=== PATIENT | female | born 2000 | race Caucasian/White ===

== ENCOUNTER 2022-11-19 10:33 | Emergency (ER) | payer BC ==
[2022-11-19] MEDS ORDERED: Ketorolac Tromethamine 30 MG/ML VIAL ONE (12:14)
[2022-11-19 12:16] LABS: Bilirubin Neg (Negative); Blood, Urine 50 (Negative); Glucose, Urine (Dipstick) Normal (Negative); Ketone, Urine Negative (Negative); Leukocyte 25 (Negative); Nitrite Negative (Negative); Protein, Urine (Dipstick) 15 mg/dl (Neg-Trace); Specific Gravity, Urine 1.025 (1.005-1.030); Urobilinogen Normal mg/dL (Less than 2)
[2022-11-19 12:20] LABS: Clarity Clear (Clear)
[2022-11-19 12:36] LABS: Bacteria/HPF None Seen HPF (None Seen); Mucous/LPF 1+ LPF (<2+); RBC/HPF 0-3 HPF (0-3); Squamous Epithelial 0-3 HPF (0-3); WBC/HPF 0-3 HPF (0-3)
[2022-11-19 12:52] LABS: Pregnancy Test - Urine (BHCG) Negative (Negative); Pregu Control Background? CLEAR/WHITE (CLR/WHITE); Pregu Control Bar Appear? YES (CONTROL BAR); Specific Gravity 1.025 (1.002-1.036)
[2022-11-19 22:57] LABS: Chlam.trachomatis by PCR,Urine Not Detected (NotDetected)
== END 2022-11-19 12:40 | disposition home or self-care (01) ==
LOC: CSHERS 10:33
DX: N72 Inflammatory disease of cervix uteri (principal)
CPT/HCPCS: 81003; 81015; 81025; 87491; 87591; 96372; 99284; J1885

== ENCOUNTER 2024-10-24 21:04 | Inpatient (IN) | payer BC, OTHER ==
[2024-10-24] MEDS ORDERED: Diphenoxylate HCl/Atropine Tablet PO PRN ×2 (21:31)
[2024-10-24] MEDS ORDERED: Zolpidem Tartrate 5 MG TAB PO PRN (21:31)
[2024-10-24] MEDS ORDERED: Methylergonovine 0.2 MG/ML VIAL IM PRN (21:31)
[2024-10-24] MEDS ORDERED: Promethazine HCl 25 MG/ML VIAL IM PRN (21:31)
[2024-10-24] MEDS ORDERED: hydrALAZINE 20 MG/ML VIAL SLOW IVP PRN (21:31)
[2024-10-24] MEDS ORDERED: Tranexamic Acid 1,000 MG/10 ML VIAL IVP PRN (21:31)
[2024-10-24] MEDS ORDERED: Acetaminophen 500 MG TAB PO PRN (21:31)
[2024-10-24] MEDS ORDERED: HYDROcodone/Acetaminophen 5/325 mg Tablet PO PRN ×2 (21:31)
[2024-10-24] MEDS ORDERED: fentaNYL 50 mcg/mL 1 mL Vial SLOW IVP PRN (21:31)
[2024-10-24] MEDS ORDERED: Misoprostol 200 MCG TAB PR PRN (21:31)
[2024-10-24] MEDS ORDERED: Lidocaine 1% (PF) 30 ML VIAL SC PRN (21:31)
[2024-10-24] MEDS ORDERED: Carboprost 250 MCG/ML AMP IM PRN (21:31)
[2024-10-24 21:33] VITALS: BMI 21.5
[2024-10-24] MEDS ORDERED: Oxytocin 30 units/NS 500 ML 500 ML IV SCH (22:00)
[2024-10-24] MEDS ORDERED: Misoprostol 100 MCG TAB VAG SCH (22:00)
[2024-10-24] MEDS ORDERED: Lactated Ringer's 1,000 ML IV SCH (22:00)
[2024-10-24 22:26] LABS: Hematocrit 33.9 % (34.9-44.5); Hemoglobin 11.2 g/dL (12.0-15.5); Mean Corpuscular Hemoglobin 26.9 pg (27.0-33.0); Mean Corpuscular Volume 81.3 fL (81.6-98.3); Mean Platelet Volume 12.4 fL (7.4-10.4); Platelet Count 278 10x3/uL (150-450); RBC Distribution Width 14.2 % (11.5-14.5); Red Blood Cell (RBC) Count 4.17 10x6/uL (3.90-5.03)
[2024-10-24 23:00] LABS: HBsAg Index 0.19 S/CO (0-0.99); Hep B Surf Ag - L&D Non-Reactive S/CO (NonReactive); Syphilis Antibody Nonreactive (Nonreactive); Syphilis Antibody Index 0.13 S/CO (<1.00 Non-Reactive)
[2024-10-25] MEDS: Oxytocin 30 units/NS 500 ML 500 ML IV SCH (00:29)
[2024-10-25] MEDS: Ondansetron PF 4 MG/2 ML Vial IVP PRN (01:00)
[2024-10-25] MEDS: fentaNYL/Ropivacaine Epidural 100 ML ONE (01:47)
[2024-10-25] MEDS ORDERED: Ondansetron PF 4 MG/2 ML Vial IVP PRN (01:59)
[2024-10-25] MEDS ORDERED: Promethazine HCl 25 MG/ML VIAL IM PRN (01:59)
[2024-10-25] MEDS ORDERED: ePHEDrine Sulfate 50 MG/10 ML VIAL SLOW IVP PRN (01:59)
[2024-10-25] MEDS ORDERED: diphenhydrAMINE 50 MG/ML VIAL IVP PRN (01:59)
[2024-10-25] MEDS ORDERED: Moisturizing Cream (Eucerin) 113 GM JAR TOP PRN (01:59)
[2024-10-25] MEDS ORDERED: Naloxone HCl 0.4 mg/ml Vial IVP PRN ×2 (01:59)
[2024-10-25] MEDS ORDERED: Acetaminophen 325 MG TAB PO PRN (01:59)
[2024-10-25] MEDS ORDERED: Lactated Ringer's 500 ML IV PRN (01:59)
[2024-10-25] MEDS ORDERED: Communication Order-Pharmacy FS SCH (02:00)
[2024-10-25] MEDS ORDERED: fentaNYL 2 mcg/Ropivacaine 0.2% Epidural 100 ML CADD EPIDURAL SCH (02:00)
[2024-10-25] MEDS ORDERED: hydrALAZINE 20 MG/ML VIAL SLOW IVP PRN (08:30)
[2024-10-25] MEDS ORDERED: Lanolin Ointment 7 GM TUBE TOP PRN (08:30)
[2024-10-25] MEDS ORDERED: Milk Of Magnesia 30 ML UDCUP PO PRN (08:30)
[2024-10-25] MEDS ORDERED: Benzocaine-Menthol 82.5 ML CAN TOP PRN (08:30)
[2024-10-25] MEDS ORDERED: Bisacodyl 10 MG SUPP PR PRN (08:30)
[2024-10-25] MEDS ORDERED: Preparation H Ointment 28 GM TUBE PR PRN (08:30)
[2024-10-25] MEDS ORDERED: Bupivacaine/Epinephrine 0.25% 30 ML VIAL ONE (10:00)
[2024-10-25] MEDS: Ibuprofen 800 MG TAB PO PRN (10:12)
[2024-10-25] MEDS: Prenatal Vitamin 1 TAB PO SCH (16:27)
[2024-10-25] MEDS: Docusate 100 MG CAP PO SCH (16:27)
[2024-10-25] MEDS: Boostrix 0.5 ML (Tdap) VIAL (>/=7 yrs of age) IM ONE (16:28)
[2024-10-25] MEDS: Ferrous Sulfate 325 MG TAB PO SCH (16:28)
[2024-10-25] MEDS: Ibuprofen 800 MG TAB PO SCH (17:05)
[2024-10-25] MEDS: traMADol HCl 50 MG TAB PO PRN (18:01)
[2024-10-26 07:59] VITALS: BP 108/62; TEMP 98.2
== END 2024-10-26 13:45 | disposition home or self-care (01) | DRG 807 ==
LOC: CSHLD 21:04 → CSHPP 10-25 16:00
PROVIDERS: ADMIT Obstetrics & Gynecology; ATTEND Obstetrics & Gynecology
PROC: 10E0XZZ Delivery of Products of Conception, External Approach (ICD-10-PCS; principal; 2024-10-25)
PROC: 3E0S3BZ Introduction of Anesthetic Agent into Epidural Space, Percutaneous Approach (ICD-10-PCS; 2024-10-25)
DX: O80 Encounter for full-term uncomplicated delivery (principal); Z37.0 Single live birth; Z3A.39 39 weeks gestation of pregnancy
CPT/HCPCS: 51702; 85027; 86780; 86850; 86900; 86901; 87340; J2405; J2590